=== PATIENT | female | born 2000 | race Caucasian/White ===

== ENCOUNTER → 2021-05-23 | Outpatient (CLI) | payer BC ==
[2021-05-23 07:03] LABS: POTASSIUM 3.6 MMOL/L (3.6-5.0)
[2021-05-23 07:04] LABS: CALCIUM 9.3 MG/DL (8.5-10.1)
[2021-05-23 07:05] LABS: TOTAL PROTEIN 7.5 GM/DL (6.4-8.2)
[2021-05-23 07:07] LABS: BILIRUBIN,TOTAL 0.3 MG/DL (0.1-1.0)
[2021-05-23 07:09] LABS: CREATININE SERUM 0.77 MG/DL (0.60-1.30)
== END ==
LOC: LAB 06:39
PROVIDERS: ATTEND Dermatology
DX: Z79.899 Other long term (current) drug therapy (principal)
CPT/HCPCS: 36415; 80053; 84478; 84703